=== PATIENT | female | born 1955 | race Caucasian/White ===

== ENCOUNTER → 2018-02-14 | Outpatient (CLI) | payer OTHER ==
[~2018-02-14] MED LIST: CHOL5000 PO; MAGN400C PO; MULT-717 PO; PRAV40TA2 PO; ROPI1TAB2 PO
[2018-02-14 12:41] LABS: BASOPHILS # (AUTO) 0.07 x10^3/uL (0-0.1); BASOPHILS % (AUTO) 1 % (0-1); EOSINOPHILS # (AUTO) 0.06 x10^3/uL (0-0.4); EOSINOPHILS % (AUTO) 1 % (1-7); LYMPHOCYTES # (AUTO) 2.99 x10^3/uL (1-3.4); LYMPHOCYTES % (AUTO) 38 % (22-44); MD NO; MEAN CORPUSCULAR HEMOGLOBIN 30.7 pg (27.0-34.8); MEAN CORPUSCULAR HGB CONC 33.8 g/dL (32.4-35.8); MEAN CORPUSCULAR VOLUME 90.7 fL (80-100); MEAN PLATELET VOLUME 10.7 fL (7.4-10.4); MONOCYTES # (AUTO) 0.35 x10^3/uL (0.2-0.8); MONOCYTES % (AUTO) 4 % (2-9); NEUTROPHILS # (AUTO) 4.42 x10^3/uL (1.8-6.8); NEUTROPHILS % (AUTO) 56 % (42-75); PLATELET COUNT 217 x10^3/uL (130-400); RED BLOOD COUNT 4.28 x10^6/uL (3.82-5.3); RED CELL DISTRIBUTION WIDTH 14.9 % (9.6-15.2)
[2018-02-14 12:47] LABS: CULTURE INDICATED? NO; MICROSCOPIC NOT IND
[2018-02-14 12:49] LABS: INTERNATIONAL NORMALIZED RATIO 0.96 (0.93-1.1)
[2018-02-14 12:52] LABS: ANION GAP 7 mmol/L (5-15); CALCIUM 8.8 mg/dL (8.5-10.1); CHLORIDE 107 mmol/L (98-107)
[2018-02-14 12:57] LABS: ALANINE AMINOTRANSFERASE 31 U/L (12-78); ALKALINE PHOSPHATASE 69 U/L (45-117); BILIRUBIN,TOTAL 0.6 mg/dL (0.2-1.0); CREATININE 0.81 mg/dL (0.55-1.02); TOTAL PROTEIN 7.6 g/dL (6.4-8.2)
== END | disposition home or self-care (01) ==
LOC: STAR 11:18
PROVIDERS: ATTEND Neurological Surgery
DX: Z01.818 Encounter for other preprocedural examination (principal); M43.16 Spondylolisthesis, lumbar region; M51.36 Other intervertebral disc degeneration, lumbar region; M48.061 Spinal stenosis, lumbar region without neurogenic claudication; Z87.891 Personal history of nicotine dependence
CPT/HCPCS: 36415; 71046; 80053; 81003; 85025; 85610; 85730; 93005

== ENCOUNTER 2018-02-25 05:29 | Inpatient (IN) | payer OTHER ==
[2018-02-14 13:03] VITALS: BP 171/63
[~2018-02-25] VITALS: Ht 167.6 cm; Wt 84.9 kg
[2018-02-25] MEDS ORDERED: LACTATED RINGERS 1,000 ML IV SCH (06:01)
[2018-02-25] MEDS ORDERED: BACITRACIN 50,000 UNIT ONE (06:17)
[2018-02-25] MEDS ORDERED: THROMBIN 20,000 UNIT VIAL TP ONE (06:17)
[2018-02-25] MEDS ORDERED: HEPARIN 1,000 UNITS/ML, 30ML ONE (06:29)
[2018-02-25] MEDS ORDERED: FAMOTIDINE 20 MG TABLET PO ONE ×2 (06:30)
[2018-02-25] MEDS ORDERED: DIAZEPAM 5 MG TABLET PO ONE ×2 (06:30)
[2018-02-25] MEDS ORDERED: LIDOCAINE-MPF 1%, 2ML INFIL ONE (06:30)
[2018-02-25] MEDS ORDERED: ACETAMINOPHEN 500 MG TABLET PO ONE ×2 (06:30)
[2018-02-25] MEDS ORDERED: TAMSULOSIN 0.4 MG CAP.ER.24H PO ONE ×2 (06:30)
[2018-02-25] MEDS ORDERED: METOCLOPRAMIDE 10MG TABLET PO STA (06:30)
[2018-02-25] MEDS ORDERED: GABAPENTIN 300 MG CAPSULE PO ONE ×2 (06:30)
[2018-02-25] MEDS ORDERED: METOCLOPRAMIDE 10MG TABLET PO ONE (06:30)
[2018-02-25] MEDS ORDERED: KETAMINE 10 MG/ML, 20ML ONE (06:34)
[2018-02-25] MEDS ORDERED: FENTANYL PF 250 MCG/5ML ONE (06:36)
[2018-02-25] MEDS ORDERED: SUFentanil 50 MCG/ML, 2ML ONE ×2 (06:36)
[2018-02-25] MEDS ORDERED: GABAPENTIN 300 MG CAPSULE ONE (06:38)
[2018-02-25] MEDS ORDERED: METOCLOPRAMIDE 10MG TABLET ONE (06:38)
[2018-02-25] MEDS ORDERED: FAMOTIDINE 20 MG TABLET ONE (06:39)
[2018-02-25] MEDS ORDERED: DIAZEPAM 5 MG TABLET ONE (06:40)
[2018-02-25] MEDS ORDERED: DEXAMETHASONE 4 MG/ML, 1ML ONE (06:58)
[2018-02-25] MEDS ORDERED: ROCURONIUM 10MG/ML,5ML ONE (06:58)
[2018-02-25] MEDS ORDERED: SUCCINYLCHOLINE 20 MG/ML, 10ML ONE (06:58)
[2018-02-25] MEDS ORDERED: CEFAZOLIN 1,000 MG ONE (06:58)
[2018-02-25] MEDS ORDERED: NEOSTIGMINE 1 MG/ML, 10ML ONE (06:58)
[2018-02-25] MEDS ORDERED: GLYCOPYRROLATE 0.2MG/1ML, 5ML ONE (06:58)
[2018-02-25] MEDS ORDERED: PROPOFOL 10 MG/ML, 20ML ONE (06:58)
[2018-02-25] MEDS ORDERED: EPHEDRINE 50 MG/ML, 1ML ONE (06:58)
[2018-02-25] MEDS ORDERED: ALBUTEROL SULFATE 2.5 MG/3 ML NPPB PRN (08:00)
[2018-02-25] MEDS ORDERED: MEPERIDINE/PF 25MG/0.5ML IVPush PRN (08:00)
[2018-02-25] MEDS ORDERED: hydrALAzine 20 MG/ML, 1ML IV PRN (08:00)
[2018-02-25] MEDS ORDERED: ONDANSETRON ODT 8 MG PO PRN (08:00)
[2018-02-25] MEDS ORDERED: DIAZEPAM 5 MG/ML, 2ML IVPush PRN (08:00)
[2018-02-25] MEDS ORDERED: PROMETHAZINE 25 MG/ML, 1ML IV PRN (08:00)
[2018-02-25] MEDS ORDERED: SUGAMMADEX 200 MG/2 ML IVPush ONE (08:45)
[2018-02-25] MEDS ORDERED: CEFAZOLIN PMX 1GM/50ML 50 ML IVPB SCH (09:00)
[2018-02-25] MEDS ORDERED: DIPHENHYDRAMINE 50 MG CAPSULE PO PRN (09:00)
[2018-02-25] MEDS ORDERED: SENNA/DOCUSATE TABLET PO PRN (09:00)
[2018-02-25] MEDS ORDERED: ZOLPIDEM 5MG TABLET PO PRN (09:00)
[2018-02-25] MEDS ORDERED: PHARMACY MAY ADJ FOR RENAL FX MC PRN (09:00)
[2018-02-25] MEDS ORDERED: PROMETHAZINE 25 MG/ML, 1ML IM PRN (09:00)
[2018-02-25] MEDS ORDERED: MAGNESIUM HYDROXIDE 8%, 30ML UDC PO PRN (09:00)
[2018-02-25] MEDS ORDERED: BISACODYL 10 MG SUPP PR PRN (09:00)
[2018-02-25] MEDS ORDERED: LABETALOL 5MG/ML, 20ML IVPush PRN (09:00)
[2018-02-25] MEDS ORDERED: ONDANSETRON 2MG/ML, 2ML IVPush PRN (09:00)
[2018-02-25] MEDS ORDERED: ENOXAPARIN 40 MG/0.4 ML SQ SCH (09:00)
[2018-02-25] MEDS ORDERED: DIPHENHYDRAMINE 50 MG/ML, 1ML IVPush PRN (09:00)
[2018-02-25] MEDS ORDERED: HYDROcodone/APAP 5/325 TABLET PO PRN (09:00)
[2018-02-25] MEDS ORDERED: morphine SULFATE 10 MG/ML, 1ML IVPush PRN (09:00)
[2018-02-25] MEDS: FENTANYL PF 100 MCG/2ML IV PRN ×2 (09:08→09:15)
[2018-02-25] MEDS: OXYcodone 5 MG/5 ML ORAL.SOL UDC PO PRN ×2 (09:09→09:40)
[2018-02-25] MEDS ORDERED: morphine SULFATE 10 MG/ML, 1ML ONE (09:22)
[2018-02-25] MEDS: MORPHINE SULFATE 4 MG/ML, 1ML IVPush PRN ×3 (09:25→09:54)
[2018-02-25] MEDS ORDERED: METOCLOPRAMIDE 5 MG/ML, 2ML IVPush PRN (09:30)
[2018-02-25] MEDS ORDERED: OXYcodone 5 MG/5 ML ORAL.SOL UDC ONE (09:38)
[2018-02-25 10:48] VITALS: BP 100/65
[2018-02-25 12:39] VITALS: BP 114/67
[2018-02-25] MEDS: OXYcodone/APAP 5/325MG TABLET PO PRN ×2 (15:37→20:07)
[2018-02-25] MEDS: CEFAZOLIN PMX 1GM/50ML 50 ML IVPB SCH ×2 (15:38→22:50)
[2018-02-25 19:19] VITALS: BP 111/71
[2018-02-25] MEDS: ROPINIROLE 1MG TABLET PO SCH (20:09)
[2018-02-25] MEDS: PRAVASTATIN 40 MG TABLET PO SCH (20:09)
[2018-02-25 23:44] VITALS: BP 105/62
[2018-02-26 04:11] VITALS: BP 114/70
[2018-02-26] MEDS: OXYcodone/APAP 5/325MG TABLET PO PRN ×5 (04:30→21:50)
[2018-02-26 05:07] LABS: BASOPHILS # (AUTO) 0.03 x10^3/uL (0-0.1); BASOPHILS % (AUTO) 0 % (0-1); EOSINOPHILS # (AUTO) 0.01 x10^3/uL (0-0.4); EOSINOPHILS % (AUTO) 0 % (1-7); LYMPHOCYTES # (AUTO) 2.42 x10^3/uL (1-3.4); LYMPHOCYTES % (AUTO) 21 % (22-44); MD NO; MEAN CORPUSCULAR HEMOGLOBIN 31.1 pg (27.0-34.8); MEAN CORPUSCULAR HGB CONC 33.9 g/dL (32.4-35.8); MEAN PLATELET VOLUME 11.2 fL (7.4-10.4); MONOCYTES # (AUTO) 0.46 x10^3/uL (0.2-0.8); MONOCYTES % (AUTO) 4 % (2-9); NEUTROPHILS # (AUTO) 8.38 x10^3/uL (1.8-6.8); NEUTROPHILS % (AUTO) 74 % (42-75); PLATELET COUNT 182 x10^3/uL (130-400); RED BLOOD COUNT 3.49 x10^6/uL (3.82-5.3); RED CELL DISTRIBUTION WIDTH 14.8 % (9.6-15.2)
[2018-02-26 05:25] LABS: CHLORIDE 109 mmol/L (98-107)
[2018-02-26] MEDS ORDERED: ENOXAPARIN 40 MG/0.4 ML ONE (05:56)
[2018-02-26] MEDS: ENOXAPARIN 40 MG/0.4 ML SQ SCH (05:58)
[2018-02-26 06:14] LABS: ANION GAP 11 mmol/L (5-15); CALCIUM 8.8 mg/dL (8.5-10.1); CREATININE 0.98 mg/dL (0.55-1.02)
[2018-02-26 09:09] VITALS: BP 102/64
[2018-02-26 14:00] VITALS: BP 116/69
[2018-02-26] MEDS: PRAVASTATIN 40 MG TABLET PO SCH (21:33)
[2018-02-26] MEDS: ROPINIROLE 1MG TABLET PO SCH (21:33)
[2018-02-26 22:09] VITALS: BP 126/82
[2018-02-27 01:34] VITALS: BP 120/71
[2018-02-27 05:10] LABS: BASOPHILS # (AUTO) 0.05 x10^3/uL (0-0.1); BASOPHILS % (AUTO) 1 % (0-1); EOSINOPHILS # (AUTO) 0.07 x10^3/uL (0-0.4); EOSINOPHILS % (AUTO) 1 % (1-7); LYMPHOCYTES # (AUTO) 2.58 x10^3/uL (1-3.4); LYMPHOCYTES % (AUTO) 28 % (22-44); MD NO; MEAN CORPUSCULAR HEMOGLOBIN 30.7 pg (27.0-34.8); MEAN CORPUSCULAR HGB CONC 33.7 g/dL (32.4-35.8); MEAN CORPUSCULAR VOLUME 91.1 fL (80-100); MEAN PLATELET VOLUME 10.8 fL (7.4-10.4); MONOCYTES # (AUTO) 0.57 x10^3/uL (0.2-0.8); MONOCYTES % (AUTO) 6 % (2-9); NEUTROPHILS # (AUTO) 5.97 x10^3/uL (1.8-6.8); NEUTROPHILS % (AUTO) 65 % (42-75); PLATELET COUNT 155 x10^3/uL (130-400); RED BLOOD COUNT 3.35 x10^6/uL (3.82-5.3); RED CELL DISTRIBUTION WIDTH 14.9 % (9.6-15.2)
[2018-02-27 05:22] LABS: ANION GAP 5 mmol/L (5-15); CALCIUM 8.3 mg/dL (8.5-10.1); CHLORIDE 109 mmol/L (98-107); CREATININE 0.81 mg/dL (0.55-1.02)
[2018-02-27] MEDS ORDERED: BUPIVACAINE/PF 0.25% ONE (06:19)
[2018-02-27] MEDS ORDERED: THROMBIN 5,000 UNIT VIAL TP ONE (06:19)
[2018-02-27] MEDS ORDERED: BACITRACIN 50,000 UNIT ONE (06:20)
[2018-02-27] MEDS ORDERED: EPINEPHRINE 1 MG/ML, 1ML ONE (06:20)
[2018-02-27] MEDS ORDERED: VANCOMYCIN 1,000 MG ONE (06:20)
[2018-02-27] MEDS ORDERED: FENTANYL PF 250 MCG/5ML ONE (06:24)
[2018-02-27] MEDS ORDERED: MIDAZOLAM 1 MG/ML, 2ML ONE (06:24)
[2018-02-27] MEDS ORDERED: PROPOFOL 10 MG/ML, 20ML ONE (06:25)
[2018-02-27] MEDS ORDERED: ROCURONIUM 10MG/ML,5ML ONE (06:26)
[2018-02-27] MEDS: OxyconTIN ER 10 MG TAB.ER PO ONE ×2 (06:26→06:41)
[2018-02-27] MEDS ORDERED: SUCCINYLCHOLINE 20 MG/ML, 10ML ONE (06:26)
[2018-02-27] MEDS: ACETAMINOPHEN 500 MG TABLET PO ONE ×2 (06:26→06:41)
[2018-02-27] MEDS: GABAPENTIN 300 MG CAPSULE PO ONE ×2 (06:26→06:41)
[2018-02-27] MEDS ORDERED: DEXAMETHASONE 4 MG/ML, 1ML ONE ×2 (06:27)
[2018-02-27] MEDS: ONDANSETRON ODT 8 MG PO ONE ×2 (06:27→06:41)
[2018-02-27] MEDS ORDERED: CEFAZOLIN 1,000 MG ONE ×2 (06:28)
[2018-02-27] MEDS ORDERED: WATER-INJECTION,STERILE 10 ML IV ONE (06:28)
[2018-02-27] MEDS: SCOPOLAMINE PATCH, 1.5MG PATCH.TD72 TD ONE ×2 (06:28→06:41)
[2018-02-27] MEDS ORDERED: PROPOFOL 50 ML ONE ×2 (06:30→07:41)
[2018-02-27] MEDS ORDERED: PROMETHAZINE 12.5 MG SUPP PR PRN (07:00)
[2018-02-27] MEDS ORDERED: DIAZEPAM 5 MG/ML, 2ML IVPush PRN (07:00)
[2018-02-27] MEDS ORDERED: hydrALAzine 20 MG/ML, 1ML IV PRN (07:00)
[2018-02-27] MEDS ORDERED: ONDANSETRON ODT 8 MG PO PRN (07:00)
[2018-02-27] MEDS ORDERED: PROMETHAZINE 25 MG SUPP PR PRN (07:00)
[2018-02-27] MEDS ORDERED: FENTANYL PF 100 MCG/2ML IV PRN (07:00)
[2018-02-27] MEDS ORDERED: HYDROmorphone 1 MG/ML, 1ML IV PRN (07:00)
[2018-02-27] MEDS ORDERED: PROMETHAZINE 25 MG/ML, 1ML IV PRN (07:00)
[2018-02-27] MEDS ORDERED: MEPERIDINE/PF 25MG/0.5ML IVPush PRN (07:00)
[2018-02-27] MEDS ORDERED: OXYcodone 5 MG/5 ML ORAL.SOL UDC PO PRN (07:00)
[2018-02-27] MEDS ORDERED: LABETALOL 5MG/ML, 20ML IV PRN (07:00)
[2018-02-27] MEDS ORDERED: NEOSTIGMINE 1 MG/ML, 10ML ONE (07:43)
[2018-02-27] MEDS ORDERED: GLYCOPYRROLATE 0.4 MG/2 ML, 2ML ONE (07:43)
[2018-02-27] MEDS ORDERED: MEPERIDINE/PF 100 MG/ML ONE (07:44)
[2018-02-27] MEDS ORDERED: PHENYLEPHRINE 10 MG/ML ONE (07:55)
[2018-02-27] MEDS ORDERED: MORPHINE SULFATE 4 MG/ML, 1ML ONE (10:06)
[2018-02-27] MEDS: MORPHINE SULFATE 4 MG/ML, 1ML IVPush PRN ×2 (10:08→10:21)
[2018-02-27] MEDS: LACTATED RINGERS 1,000 ML IV SCH ×2 (11:51→21:30)
[2018-02-27 12:51] VITALS: BP 99/74
[2018-02-27] MEDS: OXYcodone/APAP 5/325MG TABLET PO PRN ×2 (17:24→22:04)
[2018-02-27 20:00] VITALS: BP 120/65
[2018-02-27] MEDS: PRAVASTATIN 40 MG TABLET PO SCH (21:28)
[2018-02-27] MEDS: ROPINIROLE 1MG TABLET PO SCH (21:28)
[2018-02-28 02:00] VITALS: BP 99/62
[2018-02-28] MEDS: OXYcodone/APAP 5/325MG TABLET PO PRN ×4 (03:10→21:11)
[2018-02-28] MEDS: METHOCARBAMOL 750 MG TABLET PO PRN ×2 (03:10→21:20)
[2018-02-28 06:00] LABS: BASOPHILS # (AUTO) 0.08 x10^3/uL (0-0.1); BASOPHILS % (AUTO) 1 % (0-1); EOSINOPHILS # (AUTO) 0.03 x10^3/uL (0-0.4); EOSINOPHILS % (AUTO) 0 % (1-7); LYMPHOCYTES # (AUTO) 2.63 x10^3/uL (1-3.4); LYMPHOCYTES % (AUTO) 22 % (22-44); MD NO; MEAN CORPUSCULAR HEMOGLOBIN 30.6 pg (27.0-34.8); MEAN CORPUSCULAR HGB CONC 33.5 g/dL (32.4-35.8); MEAN CORPUSCULAR VOLUME 91.3 fL (80-100); MEAN PLATELET VOLUME 10.9 fL (7.4-10.4); MONOCYTES # (AUTO) 0.67 x10^3/uL (0.2-0.8); MONOCYTES % (AUTO) 6 % (2-9); NEUTROPHILS # (AUTO) 8.81 x10^3/uL (1.8-6.8); NEUTROPHILS % (AUTO) 72 % (42-75); PLATELET COUNT 157 x10^3/uL (130-400); RED BLOOD COUNT 3.01 x10^6/uL (3.82-5.3); RED CELL DISTRIBUTION WIDTH 14.8 % (9.6-15.2)
[2018-02-28 06:09] LABS: CHLORIDE 107 mmol/L (98-107)
[2018-02-28 06:54] LABS: ANION GAP 10 mmol/L (5-15); CALCIUM 8.1 mg/dL (8.5-10.1); CREATININE 0.96 mg/dL (0.55-1.02)
[2018-02-28] MEDS: LACTATED RINGERS 1,000 ML IV SCH ×2 (07:30→17:16)
[2018-02-28 07:49] VITALS: BP 100/56
[2018-02-28] MEDS: ENOXAPARIN 40 MG/0.4 ML SQ SCH (09:32)
[2018-02-28 12:20] VITALS: BP 105/68
[2018-02-28 20:10] VITALS: BP 128/68
[2018-02-28] MEDS: ROPINIROLE 1MG TABLET PO SCH (21:11)
[2018-02-28] MEDS: PRAVASTATIN 40 MG TABLET PO SCH (21:12)
[2018-03-01 02:04] VITALS: BP 105/68
[2018-03-01] MEDS: LACTATED RINGERS 1,000 ML IV SCH ×2 (03:30→12:37)
[2018-03-01] MEDS: OXYcodone/APAP 5/325MG TABLET PO PRN ×2 (06:03→10:20)
[2018-03-01 06:19] LABS: CHLORIDE 104 mmol/L (98-107)
[2018-03-01 06:31] LABS: BASOPHILS # (AUTO) 0.11 x10^3/uL (0-0.1); BASOPHILS % (AUTO) 1 % (0-1); EOSINOPHILS # (AUTO) 0.15 x10^3/uL (0-0.4); EOSINOPHILS % (AUTO) 2 % (1-7); LYMPHOCYTES # (AUTO) 2.39 x10^3/uL (1-3.4); LYMPHOCYTES % (AUTO) 26 % (22-44); MD NO; MEAN CORPUSCULAR HEMOGLOBIN 30.7 pg (27.0-34.8); MEAN CORPUSCULAR HGB CONC 33.6 g/dL (32.4-35.8); MEAN CORPUSCULAR VOLUME 91.3 fL (80-100); MEAN PLATELET VOLUME 10.7 fL (7.4-10.4); MONOCYTES # (AUTO) 0.42 x10^3/uL (0.2-0.8); MONOCYTES % (AUTO) 5 % (2-9); NEUTROPHILS # (AUTO) 6.25 x10^3/uL (1.8-6.8); NEUTROPHILS % (AUTO) 67 % (42-75); PLATELET COUNT 181 x10^3/uL (130-400); RED BLOOD COUNT 3.28 x10^6/uL (3.82-5.3); RED CELL DISTRIBUTION WIDTH 14.7 % (9.6-15.2)
[2018-03-01 07:10] VITALS: BP 101/63
[2018-03-01 07:28] LABS: CALCIUM 8.4 mg/dL (8.5-10.1); CREATININE 0.78 mg/dL (0.55-1.02)
[2018-03-01 07:52] LABS: ANION GAP 7 mmol/L (5-15)
[2018-03-01] MEDS: ENOXAPARIN 40 MG/0.4 ML SQ SCH (09:07)
[2018-03-01] MEDS ORDERED: MAGNESIUM CITRATE 300ML ORAL SOL PO PRN (10:00)
[2018-03-01] MEDS ORDERED: METOCLOPRAMIDE 10MG TABLET PO SCH (10:00)
[2018-03-01] MEDS ORDERED: OXYC-302 PO (10:18)
[2018-03-01] MEDS ORDERED: METH750T87 PO (10:19)
[2018-03-01 12:51] VITALS: BP 121/78
== END 2018-03-01 13:36 | disposition home or self-care (01) | DRG 454 ==
LOC: ORIP 05:29 → 4NOR 10:43 → DCLOUNGE 03-01 13:19
PROVIDERS: ADMIT Neurological Surgery; ATTEND Neurological Surgery
PROC: 0SH208Z Insertion of Spacer into Lumbar Vertebral Disc, Open Approach (ICD-10-PCS; 2018-02-25)
PROC: 0SG30A0 Fusion of Lumbosacral Joint with Interbody Fusion Device, Anterior Approach, Anterior Column, Open Approach (ICD-10-PCS; 2018-02-25)
PROC: 0ST20ZZ Resection of Lumbar Vertebral Disc, Open Approach (ICD-10-PCS; 2018-02-25)
PROC: 0ST40ZZ Resection of Lumbosacral Disc, Open Approach (ICD-10-PCS; 2018-02-25)
PROC: 01NB0ZZ Release Lumbar Nerve, Open Approach (ICD-10-PCS; 2018-02-25)
PROC: 0SH Lower Joints, Insertion (ICD-10-PCS; 2018-02-25)
PROC: 0SG00A0 Fusion of Lumbar Vertebral Joint with Interbody Fusion Device, Anterior Approach, Anterior Column, Open Approach (ICD-10-PCS; principal; 2018-02-25 07:00)
PROC: 0SG0071 Fusion of Lumbar Vertebral Joint with Autologous Tissue Substitute, Posterior Approach, Posterior Column, Open Approach (ICD-10-PCS; 2018-02-27)
PROC: 0SG3071 Fusion of Lumbosacral Joint with Autologous Tissue Substitute, Posterior Approach, Posterior Column, Open Approach (ICD-10-PCS; 2018-02-27)
PROC: 4A11X4G Monitoring of Peripheral Nervous Electrical Activity, Intraoperative, External Approach (ICD-10-PCS; 2018-02-27)
DX: M51.16 Intervertebral disc disorders with radiculopathy, lumbar region (principal); M80.88XA Other osteoporosis with current pathological fracture, vertebra(e), initial encounter for fracture; F17.200 Nicotine dependence, unspecified, uncomplicated; G89.29 Other chronic pain; M48.061 Spinal stenosis, lumbar region without neurogenic claudication; M51.37 Other intervertebral disc degeneration, lumbosacral region
CPT/HCPCS: 36415; 72100; 74018; 80048; 85025; 86850; 86900; C1713; C1729; C1776; J0171; J0690; J1100; J1644; J1650; J2250; J2704; J2710; J3010; J3370; J3490; Q0162; C1762; J0330; J2175; J2370; J7120